=== PATIENT | female | born 1970 | race Hispanic/Latino ===

== ENCOUNTER 2017-03-08 21:56 | Emergency (ER) | payer SELFPAY ==
[2017-03-08] MEDS ORDERED: HYDROcodone/Acetaminophen 5/325 mg Tablet ONE (22:30)
[2017-03-08] MEDS ORDERED: Clindamycin 300 MG/2 ML VIAL ONE (22:30)
[2017-03-08] MEDS ORDERED: Clindamycin 150 MG CAP ONE (22:30)
== END 2017-03-08 22:37 | disposition home or self-care (01) ==
LOC: NAV ERS 21:56
DX: K08.89 Other specified disorders of teeth and supporting structures (principal); E11.9 Type 2 diabetes mellitus without complications; E78.5 Hyperlipidemia, unspecified; Z87.891 Personal history of nicotine dependence; Z79.891 Long term (current) use of opiate analgesic; Z79.2 Long term (current) use of antibiotics; Z79.899 Other long term (current) drug therapy; Z79.84 Long term (current) use of oral hypoglycemic drugs
CPT/HCPCS: 99282; J3490

== ENCOUNTER 2017-05-18 19:58 | Emergency (ER) | payer SELFPAY ==
[2017-05-18] MEDS ORDERED: Nitroglycerin 0.4 MG TAB (25 Tab Bottle) ONE (20:14)
[2017-05-18 20:25] LABS: #Basophils 0.2 thou/uL (0.0-0.2); #Eosinphils 0.2 thou/uL (0.0-0.7); #Lymphocytes 4.6 thou/uL (1.20-3.40); #Monocytes 0.5 thou/uL (0.11-0.59); #Neutrophils 6.6 thou/uL (1.40-6.50); %Basophils 1.9 % (0.0-1.0); %Eosinophils 1.9 % (0.0-10.0); %Lymphocytes 37.8 % (21.0-51.0); %Monocytes 4.3 % (0.0-10.0); %Neutrophils 54.2 % (42.0-75.0); Hemoglobin 12.9 g/dL (12.0-16.0); Mean Corpuscular HGB CONC 32.3 g/dL (32.0-36.0); Mean Corpuscular Hemoglobin 24.7 pg (27.0-31.0); Mean Corpuscular Volume 76.6 fl (81.0-99.0); Mean Platelet Volume 8.1 fL (7.4-10.4); Platelet Count 413 thou/uL (130-400); White Blood Cell (WBC) Count 12.2 thou/uL (4.8-10.8)
--- NOTE | 2017-05-18 20:27 | RAD ---
SEMIUPRIGHT FRONTAL CHEST RADIOGRAPH 05/18/15 COMPARISON: 03/28/07 HISTORY: Chest tightness on the left intermittent for three weeks. FINDINGS: The lungs are clear. The heart and mediastinal contours are grossly unremarkable. Osseous structures appear unremarkable as well. IMPRESSION: No acute findings. POS: [facility]
[2017-05-18 20:37] LABS: ALT (SGPT) 31 U/L (8-55); AST (SGOT) 17 U/L (5-34); Albumin 4.2 g/dL (3.5-5.0); Alkaline Phosphatase 130 U/L (40-150); Anion Gap 19 mmol/L (10-20); BUN (Urea Nitrogen) 8 mg/dL (7.0-18.7); Bilirubin, Total 0.3 mg/dL (0.2-1.2); CK (CPK) 96 U/L (29-168); Calc. Creatinine Clearance 0 mL/min (70-130); Calcium 9.5 mg/dL (7.8-10.44); Carbon Dioxide 21 mmol/L (22-29); Chloride 98 mmol/L (98-107); Estimated GFR-MDRD 69; Globulin 3.8 g/dL (2.4-3.5); Glucose 378 mg/dL (70-105); Potassium 3.5 mmol/L (3.5-5.1); Sodium 134 mmol/L (136-145)
[2017-05-18 20:38] LABS: MDiff Complete? YES; Microcytosis SLIGHT = 6-15 cells (100X) (0-5/hpf); PLT Morphology Comment Appears Adequate
[2017-05-18 20:44] LABS: CKMB 1.2 ng/mL (0-6.6); Troponin I 0.017 ng/mL (< 0.028)
== END 2017-05-18 23:04 | disposition short-term general hospital (02) ==
LOC: NAV ERS 19:58
DX: M94.0 Chondrocostal junction syndrome [Tietze] (principal); I10 Essential (primary) hypertension; E11.9 Type 2 diabetes mellitus without complications; E78.5 Hyperlipidemia, unspecified; F32.9 Major depressive disorder, single episode, unspecified; Z87.891 Personal history of nicotine dependence; Z79.4 Long term (current) use of insulin; Z79.899 Other long term (current) drug therapy
CPT/HCPCS: 36415; 71010; 80053; 82550; 82553; 84484; 85025; 93005

== ENCOUNTER 2017-07-09 21:38 | Emergency (ER) | payer OTHER, SELFPAY ==
[2017-07-09] MEDS ORDERED: Ondansetron HCl/PF 4 MG/2 ML Vial ONE (21:53)
--- NOTE | 2017-07-09 22:45 | RAD ---
TWO VIEWS OF THE ABDOMEN AND UPRIGHT VIEW OF THE CHEST 07/09/17 COMPARISON: None. HISTORY: Gallbladder removed on Tuesday. Nausea and vomiting since the surgery. FINDINGS: Supine and upright views of the abdomen shows a nonspecific, nonobstructed bowel gas pattern. No vianey e air is seen on upright examination. Cholecystectomy clips are seen. The cardiomediastinal silhouette is normal in size. The patient is status post sternotomy. There is no evidence of consolidation, mass, or pleural effusion. IMPRESSION: No evidence of bowel obstruction. POS: [facility]
[2017-07-09 22:52] LABS: #Basophils 0.1 thou/uL (0.0-0.2); #Eosinphils 0.1 thou/uL (0.0-0.7); #Lymphocytes 1.7 thou/uL (1.20-3.40); #Monocytes 0.4 thou/uL (0.11-0.59); #Neutrophils 11.3 thou/uL (1.40-6.50); %Eosinophils 0.6 % (0.0-10.0); %Lymphocytes 12.2 % (21.0-51.0); %Monocytes 2.9 % (0.0-10.0); %Neutrophils 83.3 % (42.0-75.0); Anisocytosis MODERATE=16-30 cells (100X) (0-5/hpf); Hemoglobin 9.6 g/dL (12.0-16.0); MDiff Complete? YES; Mean Corpuscular HGB CONC 31.4 g/dL (32.0-36.0); Mean Corpuscular Hemoglobin 20.9 pg (27.0-31.0); Mean Corpuscular Volume 66.7 fl (81.0-99.0); Mean Platelet Volume 8.1 fL (7.4-10.4); Ovalocytes SLIGHT = 2-5 cells (100X) (0-1/hpf); PLT Morphology Comment Appears Increased; Platelet Count 558 thou/uL (130-400); RBC Distribution Width 15.8 % (11.5-14.5); Tear Drops SLIGHT = 2-5 cells (100X) (0-1/hpf); White Blood Cell (WBC) Count 13.6 thou/uL (4.8-10.8)
[2017-07-09 23:07] LABS: ALT (SGPT) 35 U/L (8-55); AST (SGOT) 27 U/L (5-34); Albumin 3.7 g/dL (3.5-5.0); Alkaline Phosphatase 110 U/L (40-150); Anion Gap 22 mmol/L (10-20); BUN (Urea Nitrogen) 15 mg/dL (7.0-18.7); Bilirubin, Total 0.5 mg/dL (0.2-1.2); CK (CPK) 148 U/L (29-168); Calc. Creatinine Clearance 0 mL/min (70-130); Calcium 9.2 mg/dL (7.8-10.44); Carbon Dioxide 13 mmol/L (22-29); Chloride 104 mmol/L (98-107); Estimated GFR-MDRD 87; Globulin 3.7 g/dL (2.4-3.5); Glucose 178 mg/dL (70-105); Lipase 27 U/L (8-78); Potassium 3.3 mmol/L (3.5-5.1); Protein, Total 7.4 g/dL (6.0-8.3); Sodium 136 mmol/L (136-145)
[2017-07-09 23:09] LABS: CKMB 11.3 ng/mL (0-6.6); Troponin I 2.309 ng/mL (< 0.028)
[2017-07-09] MEDS ORDERED: Nitroglycerin 2% Ointment 1 INCH/1 GM Packet ONE (23:14)
[2017-07-09] MEDS ORDERED: Metoprolol Tartrate 5 MG/5 ML VIAL ONE (23:16)
== END 2017-07-09 23:50 | disposition short-term general hospital (02) ==
LOC: NAV ERS 21:38
DX: I21.3 ST elevation (STEMI) myocardial infarction of unspecified site (principal); I10 Essential (primary) hypertension; E11.9 Type 2 diabetes mellitus without complications; E78.5 Hyperlipidemia, unspecified; E66.9 Obesity, unspecified; Z87.891 Personal history of nicotine dependence; Z79.899 Other long term (current) drug therapy
CPT/HCPCS: 74022; 80053; 82150; 82553; 83690; 84484; 85025; 93005; 96361; 96374; 96375; 36415-59; J2270; J2405

== ENCOUNTER 2018-02-08 18:06 | Emergency (ER) | payer SELFPAY | END 2018-02-08 19:10 | disposition home or self-care (01) | LOC: NAV ERS 18:06 | DX: J20.9 Acute bronchitis, unspecified (principal); J01.90 Acute sinusitis, unspecified; I10 Essential (primary) hypertension; E11.9 Type 2 diabetes mellitus without complications; Z79.4 Long term (current) use of insulin; Z79.899 Other long term (current) drug therapy | CPT/HCPCS: 36416; 99283 ==

== ENCOUNTER 2018-04-19 22:40 | Emergency (ER) | payer SELFPAY ==
--- NOTE | 2018-04-19 23:22 | RAD ---
PORTABLE CHEST: 04/19/18 HISTORY: Chest pain. COMPARISON: 05/22/17. Mild cardiomegaly. Postop sternotomy change. Lung vasquez are clear. Vascular markings normal. IMPRESSION: Mild cardiomegaly. No acute lung process. POS: [facility]
[2018-04-19 23:33] LABS: #Basophils 0.2 thou/uL (0.0-0.2); #Eosinphils 0.2 thou/uL (0.0-0.7); #Lymphocytes 3.3 thou/uL (1.20-3.40); #Monocytes 0.6 thou/uL (0.11-0.59); #Neutrophils 8.4 thou/uL (1.40-6.50); %Basophils 1.7 % (0.0-1.0); %Lymphocytes 25.5 % (21.0-51.0); %Neutrophils 65.9 % (42.0-75.0); Hemoglobin 11.8 g/dL (12.0-16.0); Hypochromia MODERATE=16-30 cells (100X) (0-5/hpf); MDiff Complete? YES; Mean Corpuscular HGB CONC 30.3 g/dL (32.0-36.0); Mean Corpuscular Hemoglobin 20.6 pg (27.0-31.0); Mean Corpuscular Volume 67.8 fl (81.0-99.0); Mean Platelet Volume 8.2 fL (7.4-10.4); Microcytosis MARKED = >30 cells (100X) (0-5/hpf); PLT Morphology Comment Appears Increased; Platelet Count 472 thou/uL (130-400); RBC Distribution Width 15.6 % (11.5-14.5); Red Blood Cell (RBC) Count 5.72 mill/uL (4.20-5.40); White Blood Cell (WBC) Count 12.8 thou/uL (4.8-10.8)
[2018-04-19 23:41] LABS: Troponin I 0.016 ng/mL (< 0.028)
[2018-04-19 23:42] LABS: ALT (SGPT) 17 U/L (8-55); AST (SGOT) 13 U/L (5-34); Alkaline Phosphatase 109 U/L (40-150); Anion Gap 18 mmol/L (10-20); BUN (Urea Nitrogen) 18 mg/dL (7.0-18.7); Bilirubin, Total 0.3 mg/dL (0.2-1.2); CK (CPK) 84 U/L (29-168); Calc. Creatinine Clearance 0 mL/min (70-130); Calcium 10.2 mg/dL (7.8-10.44); Carbon Dioxide 19 mmol/L (22-29); Chloride 100 mmol/L (98-107); Estimated GFR-MDRD 64; Globulin 3.8 g/dL (2.4-3.5); Glucose 359 mg/dL (70-105); Potassium 3.7 mmol/L (3.5-5.1); Protein, Total 7.8 g/dL (6.0-8.3); Sodium 133 mmol/L (136-145)
== END 2018-04-19 23:53 | disposition home or self-care (01) ==
LOC: NAV ERS 22:40
DX: J40 Bronchitis, not specified as acute or chronic (principal); I10 Essential (primary) hypertension; E11.9 Type 2 diabetes mellitus without complications; E78.5 Hyperlipidemia, unspecified; I25.10 Atherosclerotic heart disease of native coronary artery without angina pectoris; E66.9 Obesity, unspecified; Z87.891 Personal history of nicotine dependence; Z79.899 Other long term (current) drug therapy; I25.2 Old myocardial infarction
CPT/HCPCS: 71045; 80053; 82550; 82553; 83880; 84484; 85025; 93005; 94760

== ENCOUNTER 2018-12-27 14:40 | Emergency (ER) | payer SELFPAY ==
[2018-12-27 15:38] LABS: #Basophils 0.1 thou/uL (0.0-0.2); #Eosinphils 0.2 thou/uL (0.0-0.7); #Lymphocytes 2.2 thou/uL (1.20-3.40); #Monocytes 0.6 thou/uL (0.11-0.59); %Basophils 1.4 % (0.0-1.0); %Eosinophils 2.5 % (0.0-10.0); %Lymphocytes 23.7 % (21.0-51.0); %Monocytes 6.4 % (0.0-10.0); Hemoglobin 11.5 g/dL (12.0-16.0); Mean Corpuscular HGB CONC 30.9 g/dL (32.0-36.0); Mean Corpuscular Hemoglobin 22.2 pg (27.0-31.0); Mean Platelet Volume 8.4 fL (7.4-10.4); Platelet Count 426 thou/uL (130-400); RBC Distribution Width 14.3 % (11.5-14.5); Red Blood Cell (RBC) Count 5.16 mill/uL (4.20-5.40); White Blood Cell (WBC) Count 9.1 thou/uL (4.8-10.8)
[2018-12-27 15:44] LABS: Anion Gap 14 mmol/L (10-20); BUN (Urea Nitrogen) 14 mg/dL (7.0-18.7); Calc. Creatinine Clearance 0 mL/min (70-130); Calcium 9.5 mg/dL (7.8-10.44); Carbon Dioxide 26 mmol/L (22-29); Chloride 96 mmol/L (98-107); Estimated GFR-MDRD 52; Glucose 377 mg/dL (70-105); Lipase 42 U/L (8-78); Potassium 3.9 mmol/L (3.5-5.1); Sodium 132 mmol/L (136-145)
[2018-12-27] MEDS ORDERED: Insulin Regular 300 UNITS/3 ML VIAL ONE (15:45)
[2018-12-27 15:57] LABS: Bilirubin Negative (Negative); Blood, Urine Trace (Negative); Glucose, Urine (Dipstick) >=1000 mg/dL (Negative); Leukocyte Trace (Negative); Nitrite Negative (Negative); Protein, Urine (Dipstick) Negative (Neg-Trace); pH, Urine 6.5 (5.0-9.0)
[2018-12-27 16:13] LABS: Clarity SL HAZY (Clear)
[2018-12-27 16:23] LABS: Bacteria/HPF 1+ HPF (None Seen); RBC/HPF 0-3 HPF (0-3); Squamous Epithelial 0-3 HPF (0-3)
== END 2018-12-27 17:07 | disposition home or self-care (01) ==
LOC: NAV ERS 14:40
DX: E11.65 Type 2 diabetes mellitus with hyperglycemia (principal); E78.5 Hyperlipidemia, unspecified; I25.10 Atherosclerotic heart disease of native coronary artery without angina pectoris; I11.0 Hypertensive heart disease with heart failure; I50.9 Heart failure, unspecified; Z87.891 Personal history of nicotine dependence; Z79.4 Long term (current) use of insulin
CPT/HCPCS: 36416; 80048; 81003; 81015; 82010; 83690; 84484; 85025; 93005; 96361; 96374; J1815

== ENCOUNTER 2019-03-28 13:34 | Emergency (ER) | payer SELFPAY ==
[2019-03-28] MEDS ORDERED: Aspirin Chewable 81 MG TAB ONE (13:57)
[2019-03-28 14:08] LABS: #Basophils 0.1 thou/uL (0.0-0.2); #Eosinphils 0.2 thou/uL (0.0-0.7); #Lymphocytes 2.4 thou/uL (1.20-3.40); #Monocytes 0.3 thou/uL (0.11-0.59); #Neutrophils 5.6 thou/uL (1.40-6.50); %Basophils 1.4 % (0.0-1.0); %Eosinophils 2.1 % (0.0-10.0); %Lymphocytes 27.7 % (21.0-51.0); %Monocytes 3.8 % (0.0-10.0); Hemoglobin 10.3 g/dL (12.0-16.0); Mean Corpuscular Volume 67.9 fL (78.0-98.0); Mean Platelet Volume 7.4 fL (7.4-10.4); Platelet Count 455 thou/uL (130-400); RBC Distribution Width 16.8 % (11.5-14.5); White Blood Cell (WBC) Count 8.7 thou/uL (4.8-10.8)
[2019-03-28 14:18] LABS: ALT (SGPT) 20 U/L (8-55); AST (SGOT) 24 U/L (5-34); Albumin 3.9 g/dL (3.5-5.0); Alkaline Phosphatase 90 U/L (40-150); Anion Gap 17 mmol/L (10-20); BUN (Urea Nitrogen) 8 mg/dL (7.0-18.7); Bilirubin, Total 0.4 mg/dL (0.2-1.2); CK (CPK) 73 U/L (29-168); Calc. Creatinine Clearance 0 mL/min (70-130); Calcium 9.2 mg/dL (7.8-10.44); Carbon Dioxide 19 mmol/L (22-29); Chloride 102 mmol/L (98-107); Estimated GFR-MDRD 74; Globulin 3.3 g/dL (2.4-3.5); Glucose 398 mg/dL (70-105); Potassium 3.5 mmol/L (3.5-5.1); Protein, Total 7.2 g/dL (6.0-8.3); Sodium 134 mmol/L (136-145)
--- NOTE | 2019-03-28 14:20 | RAD ---
EXAM: CHEST ONE VIEW HISTORY: Chest pain COMPARISON: 11/26/2018 FINDINGS: Sternotomy wires are again seen. The cardiac silhouette and pulmonary vasculature are within normal l imits for the portable technique the study. The lungs are clear. The osseous structures are intact. IMPRESSION: No acute cardiopulmonary process.
[2019-03-28 14:37] LABS: MDiff Complete? YES; Microcytosis MODERATE=15-30 cells (100X) (0-5/hpf)
[2019-03-28] MEDS ORDERED: Albuterol Sulfate 2.5 mg/0.5 ml Neb ONE ×2 (14:51)
[2019-03-28 17:00] LABS: Troponin I Less than 0.010 ng/mL (< 0.028)
== END 2019-03-28 17:17 | disposition home or self-care (01) ==
LOC: NAV ERS 13:34
DX: R07.89 Other chest pain (principal); I11.0 Hypertensive heart disease with heart failure; I50.9 Heart failure, unspecified; E11.9 Type 2 diabetes mellitus without complications; E78.5 Hyperlipidemia, unspecified; I25.10 Atherosclerotic heart disease of native coronary artery without angina pectoris; Z87.891 Personal history of nicotine dependence; Z79.899 Other long term (current) drug therapy; Z79.82 Long term (current) use of aspirin; Z79.4 Long term (current) use of insulin
CPT/HCPCS: 71045; 80053; 82550; 83880; 84484; 85025; 93005; 94760; J7611; J7620

== ENCOUNTER 2019-10-09 23:45 | Emergency (ER) | payer SELFPAY ==
[2019-10-09] MEDS ORDERED: Nitroglycerin 0.4 MG TAB (25 Tab Bottle) ONE (23:52)
[2019-10-09] MEDS ORDERED: Ondansetron PF 4 MG/2 ML Vial ONE (23:59)
[2019-10-10] MEDS ORDERED: Nitroglycerin 0.4 MG TAB (25 Tab Bottle) ONE (00:06)
[2019-10-10] MEDS ORDERED: Nitroglycerin 2% Ointment 1 INCH/1 GM Packet ONE (00:06)
[2019-10-10 00:15] LABS: #Basophils 0.1 thou/uL (0.0-0.2); #Eosinphils 0.2 thou/uL (0.0-0.7); #Lymphocytes 2.8 thou/uL (1.20-3.40); #Monocytes 0.4 thou/uL (0.11-0.59); %Basophils 1.2 % (0.0-1.0); %Eosinophils 1.9 % (0.0-10.0); %Lymphocytes 24.3 % (21.0-51.0); %Monocytes 3.1 % (0.0-10.0); %Neutrophils 69.5 % (42.0-75.0); Anisocytosis SLIGHT = 6-15 cells (100X) (0-5/hpf); Hemoglobin 11.4 g/dL (12.0-16.0); MDiff Complete? YES; Mean Corpuscular HGB CONC 28.7 g/dL (32.0-36.0); Mean Corpuscular Hemoglobin 17.9 pg (27.0-31.0); Mean Corpuscular Volume 62.6 fL (78.0-98.0); Mean Platelet Volume 9.2 fL (7.4-10.4); Microcytosis MODERATE=15-30 cells (100X) (0-5/hpf); Platelet Count 532 thou/uL (130-400); Platelet Morphology Comment Appears Increased; RBC Distribution Width 16.6 % (11.5-14.5); Red Blood Cell (RBC) Count 6.37 mill/uL (4.20-5.40); White Blood Cell (WBC) Count 11.5 thou/uL (4.8-10.8)
[2019-10-10] MEDS ORDERED: Insulin Regular 300 UNITS/3 ML VIAL ONE (00:19)
[2019-10-10 00:22] LABS: ALT (SGPT) 34 U/L (8-55); AST (SGOT) 23 U/L (5-34); Albumin 4.7 g/dL (3.5-5.0); Alkaline Phosphatase 139 U/L (40-110); Anion Gap 19 mmol/L (10-20); BUN (Urea Nitrogen) 11 mg/dL (9.8-20.1); Bilirubin, Total 0.5 mg/dL (0.2-1.2); CK (CPK) 101 U/L (29-168); Calc. Creatinine Clearance 0 mL/min (70-130); Calcium 10.3 mg/dL (7.8-10.44); Carbon Dioxide 22 mmol/L (22-29); Chloride 97 mmol/L (98-107); Estimated GFR-MDRD 55; Globulin 4.4 g/dL (2.4-3.5); Glucose 458 mg/dL (70-105); Magnesium 1.6 mg/dL (1.6-2.6); Potassium 3.8 mmol/L (3.5-5.1); Protein, Total 9.1 g/dL (6.0-8.3); Sodium 134 mmol/L (136-145)
--- NOTE | 2019-10-10 11:39 | RAD ---
Chest AP view INDICATION: Chest pain COMPARISON: May 21, 2019 FINDINGS: Lungs:The lungs are clear Cardiac silhouette:Stable mild cardiomegaly and post-CABG change. Pulmonary vasculature:Normal Pleural spaces:No pleural effusion or pneumothorax is demonstrated. Upper abdomen:No abnormality seen. Osseous structures: No acute osseous abnormality. Additional findings:None. IMPRESSION: No acute cardiopulmonary abnormality.
== END 2019-10-10 02:15 | disposition short-term general hospital (02) ==
LOC: NAV ERS 23:45
DX: E11.9 Type 2 diabetes mellitus without complications (principal); D50.9 Iron deficiency anemia, unspecified; K21.9 Gastro-esophageal reflux disease without esophagitis; I11.0 Hypertensive heart disease with heart failure; I50.9 Heart failure, unspecified; E78.5 Hyperlipidemia, unspecified; E78.00 Pure hypercholesterolemia, unspecified; I25.10 Atherosclerotic heart disease of native coronary artery without angina pectoris; Z87.891 Personal history of nicotine dependence; Z79.899 Other long term (current) drug therapy; Z79.82 Long term (current) use of aspirin; Z79.01 Long term (current) use of anticoagulants; Z79.4 Long term (current) use of insulin
CPT/HCPCS: 36416; 71045; 80053; 82550; 83735; 84484; 85025; 93005; 96361; 96374; 96375; 96376; J1815; J2405

== ENCOUNTER 2020-02-09 13:49 | Emergency (ER) | payer SELFPAY | END 2020-02-09 14:28 | disposition home or self-care (01) | LOC: NAV ERS 13:49 | DX: K04.7 Periapical abscess without sinus (principal); K03.81 Cracked tooth; K02.9 Dental caries, unspecified; E11.9 Type 2 diabetes mellitus without complications; E78.00 Pure hypercholesterolemia, unspecified; E78.5 Hyperlipidemia, unspecified; I11.0 Hypertensive heart disease with heart failure; I50.9 Heart failure, unspecified; I25.10 Atherosclerotic heart disease of native coronary artery without angina pectoris; Z79.82 Long term (current) use of aspirin; Z79.02 Long term (current) use of antithrombotics/antiplatelets; Z79.899 Other long term (current) drug therapy; Z87.891 Personal history of nicotine dependence | CPT/HCPCS: 99283 ==

== ENCOUNTER 2020-04-06 03:43 | Emergency (ER) | payer SELFPAY ==
[2020-04-06] MEDS ORDERED: Ondansetron ODT 4 MG TAB ONE (03:53)
[2020-04-06] MEDS ORDERED: Aspirin Chewable 81 MG TAB ONE (04:18)
[2020-04-06 04:19] LABS: #Basophils 0.2 thou/uL (0.0-0.2); #Eosinphils 0.2 thou/uL (0.0-0.7); #Lymphocytes 4.2 thou/uL (1.20-3.40); #Monocytes 0.6 thou/uL (0.11-0.59); #Neutrophils 6.9 thou/uL (1.40-6.50); %Basophils 1.6 % (0.0-1.0); %Eosinophils 1.8 % (0.0-10.0); %Lymphocytes 34.9 % (21.0-51.0); %Monocytes 4.9 % (0.0-10.0); %Neutrophils 56.9 % (42.0-75.0); Hemoglobin 12.6 g/dL (12.0-16.0); Hypochromia SLIGHT = 6-15 cells (100X) (0-5/hpf); MDiff Complete? YES; Mean Corpuscular HGB CONC 28.8 g/dL (32.0-36.0); Mean Corpuscular Hemoglobin 21.2 pg (27.0-31.0); Mean Corpuscular Volume 73.7 fL (78.0-98.0); Mean Platelet Volume 8.7 fL (7.4-10.4); Microcytosis MODERATE=15-30 cells (100X) (0-5/hpf); Platelet Count 448 thou/uL (130-400); Platelet Morphology Comment Appears Increased; Polychromasia SLIGHT = 2-3 cells (100X) (0-2/hpf); RBC Distribution Width 16.2 % (11.5-14.5); Red Blood Cell (RBC) Count 5.92 mill/uL (4.20-5.40); White Blood Cell (WBC) Count 12.1 thou/uL (4.8-10.8)
[2020-04-06 04:28] LABS: ALT (SGPT) 42 U/L (8-55); AST (SGOT) 22 U/L (5-34); Albumin 4.5 g/dL (3.5-5.0); Alkaline Phosphatase 112 U/L (40-110); Anion Gap 20 mmol/L (10-20); BUN (Urea Nitrogen) 12 mg/dL (9.8-20.1); Bilirubin, Total 0.4 mg/dL (0.2-1.2); Calc. Creatinine Clearance 0 mL/min (70-130); Calcium 10.2 mg/dL (7.8-10.44); Carbon Dioxide 22 mmol/L (22-29); Chloride 95 mmol/L (98-107); Estimated GFR-MDRD 61; Globulin 4.2 g/dL (2.4-3.5); Glucose 383 mg/dL (70-105); Lipase 29 U/L (8-78); Potassium 3.6 mmol/L (3.5-5.1); Protein, Total 8.7 g/dL (6.0-8.3); Sodium 133 mmol/L (136-145)
[2020-04-06] MEDS ORDERED: Sodium Chloride 0.9% 1,000 ML ONE (04:40)
--- NOTE | 2020-04-06 09:13 | RAD ---
PORTABLE CHEST 1 VIEW: Date: 04/06/2020 Time: 0411 hours HISTORY: Chest pain. FINDINGS: Comparison made with exam of 10/09/2019. There are changes of median sternotomy. The heart size is normal. The lungs are well expanded without lobar consolidation, pneumothoraces, or pleural effusions. IMPRESSION: No acute process. POS: [facility]
== END 2020-04-06 05:25 | disposition left against medical advice (07) ==
LOC: NAV ERS 03:43
DX: R07.9 Chest pain, unspecified (principal); E11.65 Type 2 diabetes mellitus with hyperglycemia; R10.12 Left upper quadrant pain; R11.2 Nausea with vomiting, unspecified; R19.7 Diarrhea, unspecified; E78.5 Hyperlipidemia, unspecified; E78.00 Pure hypercholesterolemia, unspecified; I25.10 Atherosclerotic heart disease of native coronary artery without angina pectoris; I11.0 Hypertensive heart disease with heart failure; I50.9 Heart failure, unspecified; Z87.891 Personal history of nicotine dependence; Z79.899 Other long term (current) drug therapy; Z79.4 Long term (current) use of insulin; Z79.82 Long term (current) use of aspirin
CPT/HCPCS: 71045; 80053; 83690; 83880; 84484; 85025; 93005; 94760; J7050; Q0162

== ENCOUNTER 2020-09-14 18:03 | Emergency (ER) | payer SELFPAY ==
[2020-09-14 18:48] LABS: #Basophils 0.1 thou/uL (0.0-0.2); #Eosinphils 0.1 thou/uL (0.0-0.7); #Lymphocytes 2.2 thou/uL (1.20-3.40); #Monocytes 0.3 thou/uL (0.11-0.59); #Neutrophils 5.2 thou/uL (1.40-6.50); %Basophils 1.4 % (0.0-1.0); %Eosinophils 1.9 % (0.0-10.0); %Lymphocytes 27.2 % (21.0-51.0); %Monocytes 4.3 % (0.0-10.0); %Neutrophils 65.1 % (42.0-75.0); Hemoglobin 11.9 g/dL (12.0-16.0); Mean Corpuscular HGB CONC 31.2 g/dL (32.0-36.0); Mean Corpuscular Hemoglobin 24.1 pg (27.0-31.0); Mean Corpuscular Volume 77.2 fL (78.0-98.0); Mean Platelet Volume 8.4 fL (7.4-10.4); Platelet Count 366 thou/uL (130-400); RBC Distribution Width 14.8 % (11.5-14.5); Red Blood Cell (RBC) Count 4.96 mill/uL (4.20-5.40); White Blood Cell (WBC) Count 7.9 thou/uL (4.8-10.8)
[2020-09-14 19:02] LABS: ALT (SGPT) 24 U/L (8-55); AST (SGOT) 16 U/L (5-34); Albumin 3.6 g/dL (3.5-5.0); Alkaline Phosphatase 91 U/L (40-110); Anion Gap 15 mmol/L (10-20); BUN (Urea Nitrogen) 10 mg/dL (9.8-20.1); Bilirubin, Total 0.2 mg/dL (0.2-1.2); Calc. Creatinine Clearance 0 mL/min (70-130); Calcium 8.7 mg/dL (7.8-10.44); Carbon Dioxide 23 mmol/L (22-29); Chloride 102 mmol/L (98-107); Estimated GFR-MDRD 88; Globulin 3.4 g/dL (2.4-3.5); Glucose 191 mg/dL (70-105); Lipase 24 U/L (8-78); Potassium 3.6 mmol/L (3.5-5.1); Sodium 136 mmol/L (136-145)
--- NOTE | 2020-09-14 19:02 | RAD ---
XR Chest 1 View Portable HISTORY: Chest pain COMPARISON: 04/06/2020 FINDINGS: The heart size is normal. Changes of median sternotomy are again seen. The lungs are well e xpanded without focal areas of consolidation, pneumothorax or pleural effusions. IMPRESSION: No radiographic evidence of acute cardiopulmonary process.
[2020-09-14 19:16] LABS: PTT 30.8 sec (22.9-36.1); Prothrombin Time 13.5 sec (12.0-14.7)
--- NOTE | 2020-09-14 19:18 | CT ---
CT BRAIN WITHOUT CONTRAST: HISTORY: Headache FINDINGS: No evidence of acute infarct, hemorrhage, midline shift or abnormal extra-axial fluid collections is seen. The ventricular size is appropriate and the basilar cisterns are patent. The bony calvarium is intact. The visualized paranasal sinuses and mastoid air cells are well aerated. IMPRESSION: No CT evidence of acute intracranial process.
[2020-09-14] MEDS ORDERED: Sodium Chloride 0.9% 1,000 ML ONE (20:21)
[2020-09-14] MEDS ORDERED: Acetaminophen 500 MG TAB ONE (20:51)
[2020-09-14 21:58] LABS: Unspun CSF Color COLORLESS (Colorless)
[2020-09-14 21:59] LABS: Color Of CSF Supernatant COLORLESS (Colorless); Tube # 2
[2020-09-14 22:12] LABS: CSF, Glucose 101 mg/dl (40-70); CSF, Protein 27 mg/dL (15-40)
[2020-09-14 22:21] LABS: CSF Source CSF; Clarity Clear (Clear); Tube # 1; Tube # 4
== END 2020-09-14 22:01 | disposition short-term general hospital (02) ==
LOC: NAV ERS 18:03
DX: R07.9 Chest pain, unspecified (principal); H81.10 Benign paroxysmal vertigo, unspecified ear; R51.9 Headache, unspecified; E11.9 Type 2 diabetes mellitus without complications; E78.5 Hyperlipidemia, unspecified; I11.0 Hypertensive heart disease with heart failure; I50.9 Heart failure, unspecified; Z87.891 Personal history of nicotine dependence
CPT/HCPCS: 62270; 70450; 71045; 80053; 82945; 83690; 84157; 84484; 85025; 85610; 85730; 87070; 87205; 89051; 93005; J7050

== ENCOUNTER 2020-09-29 15:34 | Emergency (ER) | payer SELFPAY | END 2020-09-29 16:22 | disposition home or self-care (01) | LOC: NAV ERS 15:34 | DX: M62.838 Other muscle spasm (principal); X50.9XXA Other and unspecified overexertion or strenuous movements or postures, initial encounter; Z79.82 Long term (current) use of aspirin; Z79.899 Other long term (current) drug therapy | CPT/HCPCS: 99283 ==

== ENCOUNTER 2020-10-11 20:23 | Emergency (ER) | payer SELFPAY ==
[2020-10-11] MEDS ORDERED: Metoprolol Tartrate 5 MG/5 ML VIAL ONE (20:36)
[2020-10-11] MEDS ORDERED: Aspirin Chewable 81 MG TAB ONE (20:36)
[2020-10-11] MEDS ORDERED: Nitroglycerin 0.4 MG TAB (25 Tab Bottle) ONE (20:49)
--- NOTE | 2020-10-11 20:58 | RAD ---
CHEST ONE VIEW PORTABLE: 10/11/20 HISTORY: Chest pain. Heart size is normal. The lungs are clear. IMPRESSION: No significant acute intrathoracic disease. POS: [facility]
[2020-10-11 21:12] LABS: #Basophils 0.1 thou/uL (0.0-0.2); #Eosinphils 0.2 thou/uL (0.0-0.7); #Lymphocytes 3.5 thou/uL (1.20-3.40); #Monocytes 0.5 thou/uL (0.11-0.59); #Neutrophils 5.4 thou/uL (1.40-6.50); %Basophils 1.4 % (0.0-1.0); %Lymphocytes 36.2 % (21.0-51.0); %Monocytes 4.8 % (0.0-10.0); %Neutrophils 55.6 % (42.0-75.0); ALT (SGPT) 31 U/L (8-55); AST (SGOT) 16 U/L (5-34); Alkaline Phosphatase 116 U/L (40-110); Anion Gap 17 mmol/L (10-20); BUN (Urea Nitrogen) 13 mg/dL (9.8-20.1); Bilirubin, Total 0.2 mg/dL (0.2-1.2); CK (CPK) 143 U/L (29-168); Calc. Creatinine Clearance 0 mL/min (70-130); Calcium 9.8 mg/dL (7.8-10.44); Carbon Dioxide 24 mmol/L (22-29); Chloride 102 mmol/L (98-107); Globulin 3.6 g/dL (2.4-3.5); Glucose 337 mg/dL (70-105); Lipase 41 U/L (8-78); Mean Corpuscular HGB CONC 32.2 g/dL (32.0-36.0); Mean Corpuscular Hemoglobin 24.6 pg (27.0-31.0); Mean Corpuscular Volume 76.3 fL (78.0-98.0); Mean Platelet Volume 8.6 fL (7.4-10.4); Platelet Count 411 thou/uL (130-400); Potassium 3.8 mmol/L (3.5-5.1); Protein, Total 7.6 g/dL (6.0-8.3); RBC Distribution Width 15.3 % (11.5-14.5); Red Blood Cell (RBC) Count 5.28 mill/uL (4.20-5.40); Sodium 139 mmol/L (136-145); White Blood Cell (WBC) Count 9.7 thou/uL (4.8-10.8)
[2020-10-11 21:13] LABS: Anisocytosis MODERATE=16-30 cells (100X) (0-5/hpf); Hypochromia SLIGHT = 6-15 cells (100X) (0-5/hpf); MDiff Complete? YES; Microcytosis SLIGHT = 6-15 cells (100X) (0-5/hpf); Platelet Morphology Comment Appears Adequate; Poikilocytosis MODERATE=16-30 cells (100X) (0-5/hpf)
[2020-10-11] MEDS ORDERED: Enoxaparin Sodium 60 MG/0.6 ML SYRINGE ONE (21:48)
[2020-10-11] MEDS ORDERED: Enoxaparin Sodium 30 MG/0.3 ML SYRINGE ONE (21:48)
== END 2020-10-11 22:51 | disposition short-term general hospital (02) ==
LOC: NAV ERS 20:23 → MERGE 20:23 → NAV ERS 22:51
DX: I25.10 Atherosclerotic heart disease of native coronary artery without angina pectoris (principal); R07.9 Chest pain, unspecified; E11.9 Type 2 diabetes mellitus without complications; I10 Essential (primary) hypertension; E78.00 Pure hypercholesterolemia, unspecified; E78.5 Hyperlipidemia, unspecified; Z87.891 Personal history of nicotine dependence; Z79.82 Long term (current) use of aspirin; Z79.899 Other long term (current) drug therapy
CPT/HCPCS: 36415; 71045; 80053; 82550; 83690; 84484; 85025; 93005; 96372; 96374; J1650

== ENCOUNTER 2020-11-16 16:32 | Emergency (ER) | payer SELFPAY ==
[2020-11-16] MEDS ORDERED: Cyclobenzaprine 10 MG TAB ONE (17:02)
[2020-11-16] MEDS ORDERED: Acetaminophen 500 MG TAB ONE (17:02)
--- NOTE | 2020-11-16 17:27 | RAD ---
LEFT ANKLE THREE VIEWS: History: Ankle injury FINDINGS: There are calcaneal spurs present. There are some arthritic change at the talonavicular joint. There are no signs of fracture, dislocation, or joint effusion. POS: [facility]
--- NOTE | 2020-11-16 17:55 | RAD ---
RIGHT KNEE FOUR VIEWS: History: Fall with knee pain. FINDINGS: There are no signs of fracture, dislocation, or joint effusion. There is minimal arthritic changes of the patellofemoral joint space seen. IMPRESSION: No acute injury. POS: [facility]
== END 2020-11-16 17:53 | disposition home or self-care (01) ==
LOC: NAV ERS 16:32
DX: S39.012A Strain of muscle, fascia and tendon of lower back, initial encounter (principal); S93.402A Sprain of unspecified ligament of left ankle, initial encounter; S83.91XA Sprain of unspecified site of right knee, initial encounter; I11.0 Hypertensive heart disease with heart failure; I50.9 Heart failure, unspecified; I25.10 Atherosclerotic heart disease of native coronary artery without angina pectoris; E11.9 Type 2 diabetes mellitus without complications; E78.5 Hyperlipidemia, unspecified; E78.00 Pure hypercholesterolemia, unspecified; Z79.4 Long term (current) use of insulin; Z79.82 Long term (current) use of aspirin; Z87.891 Personal history of nicotine dependence; Z79.899 Other long term (current) drug therapy; X50.1XXA Overexertion from prolonged static or awkward postures, initial encounter; W19.XXXA Unspecified fall, initial encounter

== ENCOUNTER 2021-03-23 21:07 | Emergency (ER) | payer SELFPAY ==
[2021-03-23] MEDS ORDERED: Nitroglycerin 2% Ointment 1 INCH/1 GM Packet ONE (21:23)
[2021-03-23] MEDS ORDERED: Aspirin Chewable 81 MG TAB ONE (21:23)
[2021-03-23] MEDS ORDERED: Metoprolol Tartrate 5 MG/5 ML VIAL ONE (21:23)
[2021-03-23] MEDS ORDERED: Ondansetron PF 4 MG/2 ML Vial ONE (21:25)
[2021-03-23 21:32] LABS: #Basophils 0.2 thou/uL (0.0-0.2); #Eosinphils 0.2 thou/uL (0.0-0.7); #Lymphocytes 3.7 thou/uL (1.20-3.40); #Monocytes 0.5 thou/uL (0.11-0.59); #Neutrophils 7.3 thou/uL (1.40-6.50); %Basophils 1.6 % (0.0-1.0); %Eosinophils 1.5 % (0.0-10.0); %Lymphocytes 31.5 % (21.0-51.0); %Monocytes 4.1 % (0.0-10.0); %Neutrophils 61.4 % (42.0-75.0); Hemoglobin 14.4 g/dL (12.0-16.0); Mean Corpuscular HGB CONC 29.3 g/dL (32.0-36.0); Mean Corpuscular Hemoglobin 23.3 pg (27.0-31.0); Mean Corpuscular Volume 79.5 fL (78.0-98.0); Platelet Count 403 thou/uL (130-400); RBC Distribution Width 15.1 % (11.5-14.5); Red Blood Cell (RBC) Count 6.17 mill/uL (4.20-5.40); White Blood Cell (WBC) Count 11.9 thou/uL (4.8-10.8)
[2021-03-23 21:46] LABS: ALT (SGPT) 21 U/L (8-55); AST (SGOT) 12 U/L (5-34); Albumin 4.6 g/dL (3.5-5.0); Alkaline Phosphatase 145 U/L (40-110); Anion Gap 19 mmol/L (10-20); BUN (Urea Nitrogen) 17 mg/dL (9.8-20.1); Bilirubin, Total 0.3 mg/dL (0.2-1.2); CK (CPK) 94 U/L (29-168); Calc. Creatinine Clearance 0 mL/min (70-130); Calcium 10.1 mg/dL (7.8-10.44); Carbon Dioxide 24 mmol/L (22-29); Chloride 97 mmol/L (98-107); Globulin 4.3 g/dL (2.4-3.5); Glucose 372 mg/dL (70-105); Lipase 47 U/L (8-78); Platelet Morphology Comment Appears Increased; Potassium 3.7 mmol/L (3.5-5.1); Protein, Total 8.9 g/dL (6.0-8.3); RBC Morphology Normal; Sodium 136 mmol/L (136-145)
== END 2021-03-23 22:46 | disposition home or self-care (01) ==
LOC: NAV ERS 21:07
DX: R07.9 Chest pain, unspecified (principal); E11.9 Type 2 diabetes mellitus without complications; E78.5 Hyperlipidemia, unspecified; I11.0 Hypertensive heart disease with heart failure; I50.9 Heart failure, unspecified; Z87.891 Personal history of nicotine dependence; Z79.899 Other long term (current) drug therapy
CPT/HCPCS: 71045; 80053; 82550; 83690; 83880; 84484; 85025; 93005; 96374; 96375; J2405

== ENCOUNTER 2021-06-22 15:25 | Emergency (ER) | payer SELFPAY ==
[2021-06-22] MEDS ORDERED: Ketorolac Tromethamine 60 MG/2 ML VIAL ONE (15:44)
== END 2021-06-22 15:51 | disposition home or self-care (01) ==
LOC: NAV ERS 15:25
DX: K02.9 Dental caries, unspecified (principal); I11.0 Hypertensive heart disease with heart failure; I50.9 Heart failure, unspecified; E78.5 Hyperlipidemia, unspecified; E78.00 Pure hypercholesterolemia, unspecified; I25.10 Atherosclerotic heart disease of native coronary artery without angina pectoris; E11.9 Type 2 diabetes mellitus without complications; Z87.891 Personal history of nicotine dependence
CPT/HCPCS: 99282; J1885

== ENCOUNTER 2021-07-01 00:17 | Emergency (ER) | payer SELFPAY ==
[2021-07-01 00:53] LABS: #Basophils 0.1 thou/uL (0.0-0.2); #Eosinphils 0.2 thou/uL (0.0-0.7); #Lymphocytes 2.6 thou/uL (1.20-3.40); #Monocytes 0.4 thou/uL (0.11-0.59); #Neutrophils 4.7 thou/uL (1.40-6.50); %Basophils 1.6 % (0.0-1.0); %Eosinophils 2.4 % (0.0-10.0); %Lymphocytes 32.2 % (21.0-51.0); %Monocytes 5.2 % (0.0-10.0); %Neutrophils 58.6 % (42.0-75.0); Hemoglobin 13.7 g/dL (12.0-16.0); Mean Corpuscular HGB CONC 31.3 g/dL (32.0-36.0); Mean Corpuscular Hemoglobin 25.9 pg (27.0-31.0); Mean Corpuscular Volume 82.5 fL (78.0-98.0); Mean Platelet Volume 8.4 fL (7.4-10.4); Platelet Count 349 thou/uL (130-400); RBC Distribution Width 14.4 % (11.5-14.5); Red Blood Cell (RBC) Count 5.31 mill/uL (4.20-5.40)
[2021-07-01 01:09] LABS: ALT (SGPT) 26 U/L (8-55); AST (SGOT) 15 U/L (5-34); Albumin 4.3 g/dL (3.5-5.0); Alkaline Phosphatase 107 U/L (40-110); Anion Gap 16 mmol/L (10-20); BUN (Urea Nitrogen) 12 mg/dL (9.8-20.1); Bilirubin, Total 0.4 mg/dL (0.2-1.2); Calc. Creatinine Clearance 0 mL/min (70-130); Calcium 9.9 mg/dL (7.8-10.44); Carbon Dioxide 25 mmol/L (22-29); Chloride 100 mmol/L (98-107); Globulin 3.7 g/dL (2.4-3.5); Glucose 292 mg/dL (70-105); Lipase 29 U/L (8-78); Potassium 3.8 mmol/L (3.5-5.1); Sodium 137 mmol/L (136-145)
[2021-07-01] MEDS ORDERED: Aspirin Chewable 81 MG TAB ONE (01:28)
== END 2021-07-01 02:15 | disposition home or self-care (01) ==
LOC: NAV ERS 00:17
DX: R07.89 Other chest pain (principal)
CPT/HCPCS: 71045; 80053; 83690; 83880; 84484; 85025; 93005; 94760

== ENCOUNTER 2021-12-28 23:09 | Emergency (ER) | payer SELFPAY | END 2021-12-29 00:05 | disposition home or self-care (01) | LOC: NAV ERS 23:09 | DX: K02.9 Dental caries, unspecified (principal); I10 Essential (primary) hypertension; I11.0 Hypertensive heart disease with heart failure; I50.9 Heart failure, unspecified; E11.9 Type 2 diabetes mellitus without complications; E78.5 Hyperlipidemia, unspecified; E78.00 Pure hypercholesterolemia, unspecified; I25.10 Atherosclerotic heart disease of native coronary artery without angina pectoris; Z87.891 Personal history of nicotine dependence; Z79.4 Long term (current) use of insulin; Z79.899 Other long term (current) drug therapy | CPT/HCPCS: 99281 ==

== ENCOUNTER 2022-03-23 12:41 | Emergency (ER) | payer SELFPAY ==
[2022-03-23] MEDS ORDERED: Morphine 4 MG/ML VIAL ONE (13:31)
[2022-03-23] MEDS ORDERED: Ondansetron PF 4 MG/2 ML Vial ONE (13:32)
[2022-03-23] MEDS ORDERED: Nitroglycerin 0.4 MG TAB (25 Tab Bottle) ONE (13:32)
[2022-03-23 13:42] LABS: #Basophils 0.1 thou/uL (0.0-0.2); #Eosinphils 0.1 thou/uL (0.0-0.7); #Lymphocytes 1.1 thou/uL (1.20-3.40); #Monocytes 0.2 thou/uL (0.11-0.59); #Neutrophils 18.1 thou/uL (1.40-6.50); %Basophils 0.7 % (0.0-1.0); %Eosinophils 0.6 % (0.0-10.0); %Lymphocytes 5.4 % (21.0-51.0); %Monocytes 1.2 % (0.0-10.0); %Neutrophils 92.1 % (42.0-75.0); Hemoglobin 15.3 g/dL (12.0-16.0); Mean Corpuscular HGB CONC 31.8 g/dL (32.0-36.0); Mean Corpuscular Hemoglobin 27.4 pg (27.0-31.0); Mean Corpuscular Volume 86.4 fL (78.0-98.0); Mean Platelet Volume 8.6 fL (7.4-10.4); Platelet Count 369 thou/uL (130-400); RBC Distribution Width 12.5 % (11.5-14.5); Red Blood Cell (RBC) Count 5.56 mill/uL (4.20-5.40); White Blood Cell (WBC) Count 19.6 thou/uL (4.8-10.8)
[2022-03-23] MEDS ORDERED: Sodium Chloride 0.9% 1,000 ML ONE (13:42)
[2022-03-23 14:07] LABS: Anion Gap 21 mmol/L (10-20); BUN (Urea Nitrogen) 14 mg/dL (9.8-20.1); Calc. Creatinine Clearance 0 mL/min (70-130); Carbon Dioxide 23 mmol/L (22-29); Chloride 99 mmol/L (98-107); Potassium 3.9 mmol/L (3.5-5.1); Sodium 139 mmol/L (136-145)
[2022-03-23 14:08] LABS: ALT (SGPT) 72 U/L (8-55); AST (SGOT) 47 U/L (5-34); Albumin 4.3 g/dL (3.5-5.0); Alkaline Phosphatase 117 U/L (40-110); Bilirubin, Total 0.8 mg/dL (0.2-1.2); Calcium 9.8 mg/dL (7.8-10.44); Globulin 3.3 g/dL (2.4-3.5); Glucose 267 mg/dL (70-105); Protein, Total 7.6 g/dL (6.0-8.3)
[2022-03-23] MEDS ORDERED: Amoxicillin/Potassium Clav 875 MG TAB ONE ×2 (14:58→15:04)
== END 2022-03-23 15:20 | disposition home or self-care (01) ==
LOC: NAV ERS 12:41
DX: K02.9 Dental caries, unspecified (principal); R07.9 Chest pain, unspecified; I11.0 Hypertensive heart disease with heart failure; I50.9 Heart failure, unspecified; I25.10 Atherosclerotic heart disease of native coronary artery without angina pectoris; E11.9 Type 2 diabetes mellitus without complications; E78.5 Hyperlipidemia, unspecified; E78.00 Pure hypercholesterolemia, unspecified; Z87.891 Personal history of nicotine dependence; Z79.4 Long term (current) use of insulin; Z79.82 Long term (current) use of aspirin; Z79.899 Other long term (current) drug therapy
CPT/HCPCS: 71045; 80053; 84484; 85025; 93005; 96374; 96375; J2270; J2405; J7050

== ENCOUNTER 2022-09-17 10:30 | Emergency (ER) | payer SELFPAY ==
[2022-09-17] MEDS ORDERED: traMADol HCl 50 MG TAB ONE (11:23)
[2022-09-17] MEDS ORDERED: Ketorolac Tromethamine 30 MG/ML VIAL ONE (11:24)
[2022-09-17] MEDS ORDERED: Bacitracin 1 PK ONE (11:25)
[2022-09-17] MEDS ORDERED: Lidocaine 1% (PF) 30 ML VIAL ONE (11:25)
== END 2022-09-17 12:16 | disposition home or self-care (01) ==
LOC: NAV ERS 10:30
DX: L02.213 Cutaneous abscess of chest wall (principal); L03.313 Cellulitis of chest wall; I11.0 Hypertensive heart disease with heart failure; I50.9 Heart failure, unspecified; I25.10 Atherosclerotic heart disease of native coronary artery without angina pectoris; E11.9 Type 2 diabetes mellitus without complications; Z87.891 Personal history of nicotine dependence; Z79.02 Long term (current) use of antithrombotics/antiplatelets; Z79.4 Long term (current) use of insulin; Z79.82 Long term (current) use of aspirin
CPT/HCPCS: 10060; 87070; 87205; J1885; J2001

== ENCOUNTER 2022-12-18 16:58 | Emergency (ER) | payer SELFPAY ==
[2022-12-18 17:22] LABS: #Basophils 0.1 thou/uL (0.0-0.2); #Eosinphils 0.1 thou/uL (0.0-0.7); #Lymphocytes 2.7 thou/uL (1.20-3.40); #Monocytes 0.4 thou/uL (0.11-0.59); #Neutrophils 5.8 thou/uL (1.40-6.50); %Basophils 1.1 % (0.0-1.0); %Eosinophils 1.5 % (0.0-10.0); %Monocytes 4.2 % (0.0-10.0); %Neutrophils 63.4 % (42.0-75.0); Hemoglobin 14.1 g/dL (12.0-16.0); Mean Corpuscular HGB CONC 34.3 g/dL (32.0-36.0); Mean Corpuscular Hemoglobin 28.8 pg (27.0-31.0); Mean Corpuscular Volume 83.9 fl (78.0-98.0); Mean Platelet Volume 8.8 fL (7.4-10.4); Platelet Count 336 10x3/uL (130-400); RBC Distribution Width 11.9 % (11.5-14.5); Red Blood Cell (RBC) Count 4.91 mill/uL (4.20-5.40); White Blood Cell (WBC) Count 9.1 10x3/uL (4.8-10.8)
[2022-12-18] MEDS ORDERED: Aspirin Chewable 81 MG TAB ONE (17:25)
[2022-12-18] MEDS ORDERED: Nitroglycerin 2% Ointment 1 INCH/1 GM Packet ONE (17:25)
[2022-12-18 17:37] LABS: ALT (SGPT) 23 U/L (8-55); AST (SGOT) 15 U/L (5-34); Albumin 3.8 g/dL (3.5-5.0); Alkaline Phosphatase 117 U/L (40-110); Anion Gap 16 mmol/L (10-20); BUN (Urea Nitrogen) 17 mg/dL (9.8-20.1); Bilirubin, Total 0.4 mg/dL (0.2-1.2); Calc. Creatinine Clearance 0 mL/min (70-130); Calcium 9.2 mg/dL (7.8-10.44); Carbon Dioxide 24 mmol/L (22-29); Chloride 103 mmol/L (98-107); Estimated GFR 78; Globulin 3.3 g/dL (2.4-3.5); Glucose 285 mg/dL (70-105); Lipase 42 U/L (8-78); Potassium 3.5 mmol/L (3.5-5.1); Protein, Total 7.1 g/dL (6.0-8.3); Sodium 139 mmol/L (136-145)
[2022-12-18 17:49] LABS: Acetaminophen Less than 10.0 mcg/mL (10.0-30.0); Alcohol Less than 10 mg/dL (Less than 10); Salicylate Less than 8.0 mg/dL (15.0-30.0)
[2022-12-18 18:12] LABS: Amphetamine Not Detected (NotDetected); Barbiturates Screen Not Detected (NotDetected); Benzodiazepine Screen Not Detected (NotDetected); Cocaine Metabolite Screen Not Detected (NotDetected); Medtox Control Line Valid? VALID (VALID); Methadone Not Detected (NotDetected); Methamphetamine Not Detected (NotDetected); Opiate Screen Not Detected (NotDetected); Oxycodone Screen Not Detected (NotDetected); Phencyclidine (PCP) Not Detected (NotDetected); THC/Cannabinoid Screen Not Detected (NotDetected); Tricyclic Screen Not Detected (NotDetected)
[2022-12-18] MEDS ORDERED: Gabapentin 300 MG CAP ONE (19:03)
[2022-12-18] MEDS ORDERED: Gabapentin 300 MG CAP PO SCH (19:15)
== END 2022-12-18 20:56 | disposition short-term general hospital (02) ==
LOC: NAV ERS 16:58
DX: R07.89 Other chest pain (principal); I25.10 Atherosclerotic heart disease of native coronary artery without angina pectoris; E11.9 Type 2 diabetes mellitus without complications; R45.851 Suicidal ideations; Z79.4 Long term (current) use of insulin; I11.0 Hypertensive heart disease with heart failure; I50.9 Heart failure, unspecified; E78.00 Pure hypercholesterolemia, unspecified; Z87.891 Personal history of nicotine dependence; Z79.899 Other long term (current) drug therapy; Z79.84 Long term (current) use of oral hypoglycemic drugs; Z79.82 Long term (current) use of aspirin
CPT/HCPCS: 71045; 80053; 80306; 80307; 83690; 84443; 84484; 85025; 93005

== ENCOUNTER 2023-07-19 08:06 | Emergency (ER) | payer SELFPAY ==
[2023-07-19] MEDS ORDERED: Ibuprofen 200 MG TAB ONE (08:57)
== END 2023-07-19 11:10 | disposition home or self-care (01) ==
LOC: NAV ERS 08:06
DX: S70.01XA Contusion of right hip, initial encounter (principal); M75.31 Calcific tendinitis of right shoulder; M25.531 Pain in right wrist; Z87.891 Personal history of nicotine dependence; E11.9 Type 2 diabetes mellitus without complications; Z79.4 Long term (current) use of insulin; I11.0 Hypertensive heart disease with heart failure; I50.9 Heart failure, unspecified; E78.00 Pure hypercholesterolemia, unspecified; Z79.82 Long term (current) use of aspirin; Z79.899 Other long term (current) drug therapy; Z79.01 Long term (current) use of anticoagulants; Z79.02 Long term (current) use of antithrombotics/antiplatelets; W18.30XA Fall on same level, unspecified, initial encounter
CPT/HCPCS: 70450; 72100; 72125

== ENCOUNTER 2023-10-29 12:26 | Emergency (ER) | payer SELFPAY ==
[2023-10-29] MEDS ORDERED: Lidocaine 1% (PF) 30 ML VIAL ONE (12:51)
[2023-10-29] MEDS ORDERED: Clindamycin 150 MG CAP ONE (13:13)
[2023-10-29] MEDS ORDERED: Boostrix 0.5 ML (Tdap) VIAL (>/=7 yrs of age) ONE (13:13)
[2023-10-29] MEDS ORDERED: HYDROcodone/Acetaminophen 5/325 mg Tablet ONE (13:14)
== END 2023-10-29 13:52 | disposition home or self-care (01) ==
LOC: NAV ERS 12:26
DX: L02.211 Cutaneous abscess of abdominal wall (principal); I25.10 Atherosclerotic heart disease of native coronary artery without angina pectoris; I11.0 Hypertensive heart disease with heart failure; I50.9 Heart failure, unspecified; E78.00 Pure hypercholesterolemia, unspecified; E11.9 Type 2 diabetes mellitus without complications; Z79.4 Long term (current) use of insulin; Z79.82 Long term (current) use of aspirin; Z79.899 Other long term (current) drug therapy
CPT/HCPCS: 56405; 87070; 87186; 87205; 90471; 90715; J2001

== ENCOUNTER 2023-12-17 23:21 | Emergency (ER) | payer SELFPAY ==
[2023-12-17] MEDS ORDERED: Aspirin Chewable 81 MG TAB ONE (23:40)
[2023-12-17] MEDS ORDERED: Metoprolol Tartrate 5 MG (5 mL) VIAL ONE (23:42)
[2023-12-17] MEDS ORDERED: Morphine 4 MG/ML VIAL ONE (23:42)
[2023-12-17] MEDS ORDERED: Ondansetron PF 4 MG/2 ML Vial ONE (23:42)
[2023-12-17] MEDS ORDERED: Nitroglycerin 2% Ointment 1 INCH/1 GM Packet ONE (23:42)
[2023-12-18 00:02] LABS: Troponin I 0.057 ng/mL (< 0.028)
[2023-12-18 00:03] LABS: ALT (SGPT) 31 U/L (8-55); AST (SGOT) 20 U/L (5-34); Albumin 4.5 g/dL (3.5-5.0); Alkaline Phosphatase 133 U/L (40-110); Anion Gap 17 mmol/L (10-20); BUN (Urea Nitrogen) 13 mg/dL (9.8-20.1); Bilirubin, Total 0.3 mg/dL (0.2-1.2); Calc. Creatinine Clearance 0 mL/min (70-130); Calcium 10.3 mg/dL (7.8-10.44); Carbon Dioxide 23 mmol/L (22-29); Chloride 102 mmol/L (98-107); Estimated GFR 70; Globulin 4.5 g/dL (2.4-3.5); Glucose 169 mg/dL (70-105); Potassium 3.8 mmol/L (3.5-5.1); Sodium 138 mmol/L (136-145)
[2023-12-18] MEDS ORDERED: Morphine 2 MG/ML VIAL ONE ×2 (00:37→03:20)
[2023-12-18 00:47] LABS: #Basophils 0.2 thou/uL (0.0-0.2); #Eosinphils 0.2 thou/uL (0.0-0.7); #Monocytes 0.4 thou/uL (0.11-0.59); #Neutrophils 6.6 thou/uL (1.40-6.50); %Basophils 1.8 % (0.0-1.0); %Eosinophils 1.4 % (0.0-10.0); %Lymphocytes 34.9 % (21.0-51.0); %Monocytes 3.8 % (0.0-10.0); %Neutrophils 58.1 % (42.0-75.0); Hematocrit 48.2 % (36.0-47.0); Hemoglobin 16.1 g/dL (12.0-16.0); Mean Corpuscular HGB CONC 33.3 g/dL (32.0-36.0); Mean Corpuscular Hemoglobin 27.3 pg (27.0-31.0); Platelet Count 409 10x3/uL (130-400); RBC Distribution Width 12.1 % (11.5-14.5); Red Blood Cell (RBC) Count 5.88 mill/uL (4.20-5.40); White Blood Cell (WBC) Count 11.3 10x3/uL (4.8-10.8)
[2023-12-18 03:03] LABS: Troponin I 0.128 ng/mL (< 0.028)
[2023-12-18] MEDS ORDERED: Enoxaparin 100 MG (1 mL) SYRINGE ONE (03:20)
== END 2023-12-18 03:55 | disposition short-term general hospital (02) ==
LOC: NAV ERS 23:21
DX: I25.10 Atherosclerotic heart disease of native coronary artery without angina pectoris (principal); I11.0 Hypertensive heart disease with heart failure; I50.9 Heart failure, unspecified; E11.9 Type 2 diabetes mellitus without complications; Z79.4 Long term (current) use of insulin; E78.00 Pure hypercholesterolemia, unspecified; Z87.891 Personal history of nicotine dependence; Z79.84 Long term (current) use of oral hypoglycemic drugs; Z79.899 Other long term (current) drug therapy
CPT/HCPCS: 71045; 80053; 84484; 85025; 93005; 96372; 96374; 96375; 96376; J1650; J2270; J2272; J2405